=== PATIENT | male | born 1960 | race Caucasian/White ===

== ENCOUNTER 2019-12-20 07:19 | Day surgery (SDC) | payer BC, OTHER ==
[2019-12-20] MEDS ORDERED: Bacitracin Oint 1 GM U/D Packet ONE (07:34)
[2019-12-20] MEDS ORDERED: Lidocaine 1% with EPINEPHrine 1:100,000 50 ML MDV ONE (07:34)
[2019-12-20] MEDS ORDERED: Propofol 200 MG/20 ML SDV ONE ×2 (07:36→09:08)
[2019-12-20] MEDS ORDERED: fentaNYL 100 MCG/2 ML SDV ONE (07:36)
[2019-12-20] MEDS ORDERED: Midazolam 1 MG/ML 2 ML SDV ONE (07:36)
[2019-12-20] MEDS ORDERED: Bacitracin Oint 28.35 GM Tube ONE (07:36)
[2019-12-20] MEDS ORDERED: Sodium Chloride 0.9% 1,000 ML IV SCH (07:45)
[2019-12-20] MEDS ORDERED: ceFAZolin 2 GM in Premix Bag 1 BAG IV ONE (08:30)
[2019-12-20 10:23] VITALS: BP 125/80; PULSE 70
--- NOTE | 2019-12-20 16:05 | OR ---
DATE OF PROCEDURE: 12/20/2019 SURGEON: Ishaan Luciano MD PROCEDURE: Bilateral temporal artery biopsies. COMPLICATIONS: None. PRINTING AGENT: None. ANESTHETIC: MAC/local. PREOPERATIVE DIAGNOSIS: Concern for temporal arteritis, requiring sampling of the temporal arteries. In addition, the patient was noted to have vision changes, and Ophthalmology recommended biopsy. POSTOPERATIVE DIAGNOSIS: Concern for temporal arteritis, requiring sampling of the temporal arteries. In addition, the patient was noted to have vision changes, and Ophthalmology recommended biopsy. RISKS: Risks, benefits, alternatives, limitations including, but not limited to infection, bleeding, injury to facial muscles, chronic wounds, chronic pain, hematoma, seroma, and other risks not listed here were explained to the patient who wished to proceed. PROCEDURE IN DETAIL: The patient was placed in supine position. The head was turned to the left as the right side was addressed first. Using the Doppler, the maximum pulse area was identified. This was anesthetized with lidocaine and a 15 blade was used to carry down to a pulsatile tubular structure. This was ligated and transected and sent for a right temporal artery. The wound was irrigated and inspected for bleeding, none was noted. The wound was closed with 3-0 Vicryl and 4-0 Vicryl interrupted running fashion. Dermabond was applied. The other side was then performed in a same manner, same fashion, same technique, in the same sequence using the same equipment. This specimen is called left temporal artery biopsy. The patient tolerated the procedure well. Ishaan Luciano MD /[id number]
== END 2019-12-20 10:33 | disposition home or self-care (01) ==
LOC: JP.SDS 07:19
PROVIDERS: ATTEND Surgery
DX: H53.9 Unspecified visual disturbance (principal); Z87.891 Personal history of nicotine dependence
CPT/HCPCS: 37609; 88305; 88313; J0690; J2250; J2704; J3010; J7030; A9270-GY

== ENCOUNTER → 2023-09-08 | Day surgery (SDC) | payer BC ==
[~2023-09-08] MED LIST: Midazolam 1 MG/ML 2 ML SDV ONE; Propofol 200 MG/20 ML SDV ONE; fentaNYL 50 MCG/ML SDV ONE
[2023-09-08] MEDS: Sodium Chloride 0.9% 1,000 ML IV SCH (06:53)
[2023-09-08 08:51] VITALS: BP 124/89; PULSE 71
== END ==
LOC: JP.SDS 06:36
PROVIDERS: ATTEND Surgery
DX: Z12.11 Encounter for screening for malignant neoplasm of colon (principal); D12.3 Benign neoplasm of transverse colon; K62.1 Rectal polyp; I10 Essential (primary) hypertension
CPT/HCPCS: 45380; 45385; 88305; J2250; J2704; J3010; J7030